=== PATIENT | female | born 2000 | race Caucasian/White ===

== ENCOUNTER 2019-10-21 03:52 | Emergency (ER) | payer OTHER ==
[2019-10-21] MEDS ORDERED: Ondansetron PF 4 MG/2 ML Vial ONE (04:03)
[2019-10-21] MEDS ORDERED: Morphine 4 MG/ML VIAL ONE (04:11)
[2019-10-21 04:14] LABS: Bilirubin Negative (Negative); Blood, Urine 2+ (Negative); Clarity Clear (Clear); Glucose, Urine (Dipstick) Normal (Negative); Leukocyte Negative Leu/uL (Negative); Mucous/LPF 2+ LPF (<2+); Nitrite Negative (Negative); Protein, Urine (Dipstick) 10 mg/dL (Neg-Trace); Squamous Epithelial 0-3 HPF (0-3); Urobilinogen Normal mg/dL (Less than 2); WBC/HPF 0-3 HPF (0-3)
[2019-10-21 04:15] LABS: Bacteria/HPF 1+ HPF (None Seen)
[2019-10-21 04:30] LABS: #Basophils 0.1 thou/uL (0.0-0.2); #Lymphocytes 1.7 thou/uL (1.20-3.40); #Monocytes 0.5 thou/uL (0.11-0.59); #Neutrophils 2.1 thou/uL (1.40-6.50); %Basophils 1.3 % (0.0-1.0); %Eosinophils 1.1 % (0.0-10.0); %Lymphocytes 38.7 % (21.0-51.0); %Monocytes 10.5 % (0.0-10.0); %Neutrophils 48.4 % (42.0-75.0); Hemoglobin 13.6 g/dL (12.0-16.0); Mean Corpuscular HGB CONC 33.4 g/dL (32.0-36.0); Mean Corpuscular Hemoglobin 29.3 pg (27.0-31.0); Mean Corpuscular Volume 87.5 fL (78.0-98.0); Mean Platelet Volume 8.3 fL (7.4-10.4); Platelet Count 162 thou/uL (130-400); RBC Distribution Width 11.8 % (11.5-14.5); Red Blood Cell (RBC) Count 4.65 mill/uL (4.20-5.40); White Blood Cell (WBC) Count 4.4 thou/uL (4.8-10.8)
[2019-10-21 04:33] LABS: BHCG - Serum Negative (NEGATIVE); Pregs Control Background? CLEAR/WHITE (CLR/WHITE); Pregs Control Bar Appear? YES (CONTROL BAR)
[2019-10-21 04:48] LABS: ALT (SGPT) 38 U/L (8-55); AST (SGOT) 47 U/L (5-34); Albumin 4.9 g/dL (3.5-5.0); Alkaline Phosphatase 85 U/L (40-110); Anion Gap 14 mmol/L (10-20); BUN (Urea Nitrogen) 10 mg/dL (7.0-18.7); Bilirubin, Total 0.3 mg/dL (0.2-1.2); Calc. Creatinine Clearance 0 mL/min (70-130); Calcium 9.9 mg/dL (7.8-10.44); Carbon Dioxide 26 mmol/L (22-29); Chloride 104 mmol/L (98-107); Estimated GFR-MDRD 79; Globulin 3.2 g/dL (2.4-3.5); Glucose 101 mg/dL (70-105); Potassium 3.4 mmol/L (3.5-5.1); Protein, Total 8.1 g/dL (6.0-8.3); Sodium 141 mmol/L (136-145)
[2019-10-21 06:01] LABS: Pregnancy Test - Urine (BHCG) Negative (Negative); Pregu Control Background? CLEAR/WHITE (CLR/WHITE); Pregu Control Bar Appear? YES (CONTROL BAR)
--- NOTE | 2019-10-21 08:27 | CT ---
ABDOMEN CT WITH CONTRAST PELVIC CT WITH CONTRAST: HISTORY: Right lower quadrant pain, which began tonight. Nausea, vomiting, and diarrhea. Fever x3 days. COMPARISON: None. FINDINGS: ABDOMEN CT: Lung bases are clear. Thee is nonspecific periportal edema. Portal vein is patent. Liver, spleen, pancreas, and adrenal glands have appropriate attenuation and enhancement. There is m ild prominence of the pancreatic duct, at the upper limits of normal measuring 0.3 cm. No obvious ma ss at the head of the pancreas. The common bile duct does not appear to be markedly enlarged. Commo n bile duct diameter is 0.4 cm. Symmetric enhancement of the kidneys. Bilaterally, no obstructive uropathy. Decreased visceral fat limits evaluation for inflammatory change. No mesenteric mass, lymphadenopath y, free air, or free fluid. No definite gastrohepatic, retrocrural, or periportal lymphadenopathy. Gastric mucosa, duodenum, and small bowel loops have an overall normal course and caliber. Note, the entire small bowel loops are not opacified with oral contrast. Multiple nonspecific fluid-filled no ndistended, nondilated small bowel loops are identified. Ileocecal junction is unremarkable. There is scattered fecal material in a nondistended, nondilated colon. Mucosal prominence of the descendin g colon and sigmoid colon is likely due to inadequate distention. There is occasional diverticulosis . No definite diverticulitis. Normal-caliber air-filled appendix is identified. PELVIC CT: There appears to be fluid attenuation in the endometrium. Correlate clinically. No adnexal masses. A trace amount of free fluid is noted in the right hemipelvis, with attenuation coefficient of 16 Ho unsfield units. No lymphadenopathy or free air. IMPRESSION: 1. Normal-caliber appendix. 2. Limited evaluation of the alimentary canal by incomplete oral contrast opacification. No evidenc e of high-grade small bowel obstruction. There are scattered nonspecific nondistended fluid-filled l oops of small bowel. Clinical correlation is essential. Continued surveillance if there is concern for a developing obstructive process or ileus. 3. Mucosal prominence of the left hemicolon is felt to be due to inadequate distention. 4. Complex fluid in the pelvis, likely physiologic. POS: PPP
[2019-10-21] MEDS ORDERED: Iopamidol-370 76% 500 ML 1 ML ONE (09:58)
[2019-10-21] MEDS ORDERED: Iopamidol 370 76% 50 ML VIAL FS ONE (09:58)
== END 2019-10-21 06:52 | disposition home or self-care (01) ==
LOC: ERS 03:52
DX: R10.31 Right lower quadrant pain (principal)
CPT/HCPCS: 74177; 80053; 81003; 81015; 81025; 84703; 85025; 96361; 96374; 96375; J2270; J2405; Q9967